=== PATIENT | male | born 1950 | race Caucasian/White ===

== ENCOUNTER 2022-07-08 13:08 | Outpatient (CLI) | payer MEDICARE, SELFPAY ==
[2022-07-11 11:57] LABS: PSA, Ultrasensitive 0.64 ng/mL (<= 6.5)
[2022-07-12 17:33] LABS: Testosterone, Total 9.2 ng/dL (240-950)
== END 2022-07-08 13:09 | disposition home or self-care (01) ==
LOC: LBO 13:53
PROVIDERS: PCP Internal Medicine; Visit Provider Radiology Radiation Oncology
DX: C61 Malignant neoplasm of prostate (principal)
CPT/HCPCS: 36415; 84153; 84403

== ENCOUNTER 2022-10-31 03:01 | Outpatient (CLI) | payer MEDICARE, SELFPAY ==
[2022-11-03 18:46] LABS: PSA, Ultrasensitive 0.33 ng/mL (<= 6.5)
[2022-11-06 17:27] LABS: Testosterone, Total 169 ng/dL (240-950)
== END 2022-10-31 03:02 | disposition home or self-care (01) ==
LOC: LBO 03:01
PROVIDERS: PCP Internal Medicine; Visit Provider Radiology Radiation Oncology
DX: C61 Malignant neoplasm of prostate (principal)
CPT/HCPCS: 36415; 84153; 84403

== ENCOUNTER 2022-11-10 01:38 | Outpatient (CLI) | payer OTHER, SELFPAY ==
--- NOTE | 2022-11-10 | DI.MRI_ITS ---
Exam(s) MR LUMBAR SPINE WO EXAM: MR LUMBAR SPINE WO CLINICAL HISTORY: LUMBAR RADICULOPATHY, M54.16. TECHNIQUE: Multiplanar multisequence MRI of the Lumbar spine was performed. COMPARISON: No plain films available time this MRI interpretation. FINDINGS: Five lumbar vertebrae are presumed. There appears to be sacralization of the L5 segment. Conus medullaris is at normal level. There is no evidence of conus mass nor subjacent clumping of in trathecal nerve roots to suggest arachnoiditis. The distal thecal sac appears unremarkable.There is no evidence of Tarlov intrasacral cysts nor other significant findings within the sacral canal Bones:There are no fractures nor ominous osseous lesions in the lumbar vertebral bodies and visualize d sacrum. Mild scoliosis convex left. Epicenter is at L 1-2 level where there is asymmetric narrowi ng of the right-side of the disc space. With respect to the individual levels... T12-L1: Anterior osteophytes. Normal disc height and signal. No disc herniation or central canal st enosis. No foraminal stenosis. No significant facet arthropathy. L1-2: This level exhibits some mild narrowing of the right-side of the disc space and normal disc hei ght on the left side of this disc space. Posteriorly there is no evidence of disc herniation. No ce ntral canal stenosis. There does not appear to be significant foraminal stenosis on either side at t his level. Facet joints unremarkable. L2-3: Normal disc height. There is mild annular bulging into the floor of the exiting right neural fo ramen but without significant foraminal stenosis at this level on either side. Also no central canal stenosis. No facet arthropathy. L3-4: Relatively preserved disc height and signal. No disc herniation. No central canal stenosis. There is mild annular bulging into the floor of the exiting bilateral neural foramen but without sign ificant foraminal stenosis on either side at this level. No disc herniation or central canal stenosi s.There is mild-moderate facet arthropathy on both sides at this level. L4-5: Preserved disc height and signal. There is very mild anterolisthesis of L4 upon L5 due to sign ificant bilateral facet arthropathy. There is, however, no significant focal disc herniation. Centr al canal dimensions are lower normal. There is a tiny focus of signal abnormality in the lateral lef t annulus signifying a small radial tear but there is no disc herniation at this level. No significa nt foraminal stenosis on either side at this level. Moderate bilateral facet arthropathy evident. L5-S1: This level is sacralized and therefore the disc space exhibits normal height and signal. Ther e is no disc herniation or canal stenosis at this level. Also no significant foraminal stenosis on e ither side at this level. Mild facet degenerative changes. Soft tissues: Incidental note of a benign cyst in the superior pole of the left kidney off the media l cortex which measures 2 by 1.5 cm. Does not require further workup.No evidence of abdominal aortic aneurysm IMPRESSION: 1. Mild multilevel findings as described above. No prominent disc herniation, prominent central prince l stenosis nor prominent foraminal stenosis in the lumbar spine. 2. There is sacralization of the L5 segment. This places additional stress upon the L4-5 level and i n the there appears to be subtle degenerative anterolisthesis of L4 upon L5 due to facet arthropathy at this level. If clinically indicated flexion and extension lateral plain film views can be perform ed to determine the true amount of anterior slippage of L4 upon L5 during everyday activities. There is no significant disc space narrowing at the L4-5 level. 3. Mild scoliosis, convex left. DATA REPOSITORY:
== END 2022-11-10 01:58 ==
PROVIDERS: PCP Internal Medicine; Visit Provider Nurse Practitioner Family
DX: M54.16 Radiculopathy, lumbar region (principal); M43.16 Spondylolisthesis, lumbar region; M47.26 Other spondylosis with radiculopathy, lumbar region
CPT/HCPCS: 72148

== ENCOUNTER → 2023-01-06 00:35 | Outpatient (CLI) | payer OTHER, SELFPAY ==
--- NOTE | 2023-01-06 | DI.MRI_ITS ---
Exam(s) MR BRAIN WO EXAM: MR BRAIN WO CLINICAL HISTORY: [facility] [id number] COGNITIVE IMPAIRMENT Z01.89 TECHNIQUE: Multiplanar multisequence MRI of the brain was performed. COMPARISON: No exams were available for comparison FINDINGS: VENTRICLES AND EXTRA AXIAL SPACES: Normal in size and morphology for the patient's age. MIDLINE SHIFT: None. CEREBRAL PARENCHYMA: No focus of restricted diffusion to suggest acute infarct. No space-occupying le kristi identified. There are few hyperintense areas in the white matter likely reflecting small vessel ischemic disease. HEMORRHAGE: None. BRAINSTEM/CEREBELLUM: Normal. CALVARIUM: Normal. VISUALIZED PARANASAL SINUSES/MASTOIDS:There is a mucous retention cyst or polyp in the left maxillary sinus. [place]: Normal flow void. PITUITARY GLAND: Unremarkable. OTHER FINDINGS: None. IMPRESSION: There is cerebral atrophy and small vessel ischemic disease consistent with the patient's age. No ac soboba infarct. DATA REPOSITORY:
== END ==
PROVIDERS: PCP Internal Medicine; Visit Provider Internal Medicine
DX: I67.82 Cerebral ischemia (principal)
CPT/HCPCS: 70551

== ENCOUNTER 2023-05-10 15:17 | Outpatient (CLI) | payer MEDICARE, SELFPAY ==
[2023-05-11 19:56] LABS: PSA, Ultrasensitive 0.46 ng/mL (<= 6.5)
[2023-05-15 09:00] LABS: Testosterone, Total 324 ng/dL (240-950)
== END 2023-05-10 15:18 | disposition home or self-care (01) ==
LOC: LBO 15:22
PROVIDERS: PCP Internal Medicine; Visit Provider Nurse Practitioner
DX: C61 Malignant neoplasm of prostate (principal)
CPT/HCPCS: 36415; 84153; 84403